=== PATIENT | male | born 1990 | race Caucasian/White ===

== ENCOUNTER 2025-08-05 17:36 | Emergency (ER) | payer MEDICAID ==
[~2025-08-05] VITALS: Ht 182.9 cm; Wt 82.1 kg
[2025-08-05 18:18] VITALS: TEMP 98.5
[2025-08-05] MEDS ORDERED: KETOROLAC TROMETHAMINE 15 MG/ML VIAL ONE (20:22)
[2025-08-05] MEDS ORDERED: LIDOCAINE 5% (PATCH) 1 EA PATCH TP ONE (20:22)
[2025-08-05] MEDS: LIDOCAINE 5% (PATCH) 1 EA PATCH TP SCH (20:30)
[2025-08-05] MEDS: KETOROLAC TROMETHAMINE 15 MG/ML VIAL IV ONE (20:30)
[2025-08-05] MEDS ORDERED: LIDO30AD10 TP (21:51)
[2025-08-05] MEDS ORDERED: KETO10TA2 PO (21:51)
[2025-08-05 21:58] VITALS: BP 112/81; O2SAT 97
== END 2025-08-05 21:58 | disposition home or self-care (01) ==
LOC: ER 17:36
DX: M54.50 Low back pain, unspecified (principal); M79.18 Myalgia, other site; R11.0 Nausea; R10.9 Unspecified abdominal pain; F17.200 Nicotine dependence, unspecified, uncomplicated
CPT/HCPCS: 99285; 74176; 96374; J1885

== ENCOUNTER 2025-08-17 08:34 | Emergency (ER) | payer MEDICAID ==
[~2025-08-17] VITALS: Ht 182.9 cm; Wt 81.6 kg
[~2025-08-17 08:34] MED LIST: KETO10TA2 PO; LIDO30AD10 TP
[2025-08-17 08:44] VITALS: BP 119/75; TEMP 97.7
[2025-08-17] MEDS ORDERED: KETOROLAC TROMETHAMINE INJ 30 MG/ML VIAL ONE (08:58)
[2025-08-17] MEDS: KETOROLAC TROMETHAMINE INJ 30 MG/ML VIAL IM ONE (09:03)
[2025-08-17] MEDS ORDERED: KETO10TA2 PO (09:57)
[2025-08-17 10:09] VITALS: O2SAT 97
== END 2025-08-17 10:15 | disposition home or self-care (01) ==
LOC: ER 08:38
DX: M67.431 Ganglion, right wrist (principal); F17.200 Nicotine dependence, unspecified, uncomplicated; Z60.2 Problems related to living alone
CPT/HCPCS: 99283; 96372; 73110; J1885